=== PATIENT | female | born 1965 | race Caucasian/White ===

== ENCOUNTER 2023-10-14 17:29 | Emergency (ER) | payer OTHER, BC, SELFPAY ==
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
[2023-10-14 17:35] VITALS: BP 122/59; PULSE 77; RESP 16; TEMP 36.7; O2SAT 98; BMI 30.3
[2023-10-14 19:52] VITALS: BP 122/59; PULSE 77; RESP 16; TEMP 36.7; O2SAT 98
== END 2023-10-14 19:53 | disposition home or self-care (01) ==
PROVIDERS: Emergency Provider Emergency Medicine Emergency Medical Services
DX: S16.1XXA Strain of muscle, fascia and tendon at neck level, initial encounter (principal); R51.9 Headache, unspecified; M54.2 Cervicalgia; V49.50XA Passenger injured in collision with unspecified motor vehicles in traffic accident, initial encounter; Y93.89 Activity, other specified; Y92.488 Other paved roadways as the place of occurrence of the external cause; Y99.8 Other external cause status
CPT/HCPCS: 70450; 72125; 99282; 99284